=== PATIENT | male | born 1945 | race Native Hawaiian/Other Pacific Islander ===

== ENCOUNTER 2020-09-29 13:34 | Inpatient (IN) | payer OTHER ==
--- NOTE | 2020-09-28 19:20 | NUR ---
PT. SITTING UP IN BED IN A HIGH-FOWLERS POSITION WITH RT AT BEDSIDE DOING A DUONEB TREATMENT AT THIS TIME. PT IS RESPONSIVE TO VERBAL AND TACTILE STIMULI. PT HAD A PRODUCTIVE COUGH AT THIS TIME.
--- NOTE | 2020-09-28 22:33 | NUR ---
RAMILA NOTIFIED OF PT'S PRODUCTIVE COUGH AND LEFT RIB PAIN DUE TO COUGHING CONSISTENTY. RAMILA GAVE AN ORDER FOR CHLORAPHENIRAMINE W/ HYDROCODONE 5 ML PO Q12H AND TORADOL 15 MG IVP ONE TIME DOSE. READ BACK AND VERIFIED. NOTED AND CARRIED OUT.
[~2020-09-29] VITALS: Ht 180.3 cm; Wt 69.9 kg
[2020-09-29 14:17] LABS: PLATELET COUNT 253 K/uL (142-355)
[2020-09-29 14:27] VITALS: BP 137/66; TEMP 99; Ht 180.3 cm; Wt 69.9 kg
--- NOTE | 2020-09-29 14:50 | NUR ---
09/29/20 1401 PT TO ROOM 1109 DX COPD ORIENTED TO ROOM. PT TELE PLACED ON HIM.ALSO LUIS HOSE PLACED ON PER PCT.CALL LIGHT WITHIN REACH.CC
[2020-09-29 14:58] LABS: POTASSIUM 3.5 mmol/L (3.6-5.2); SODIUM 135 mmol/L (136-145)
[2020-09-29 16:00] VITALS: BP 137/66; TEMP 99
--- NOTE | 2020-09-29 17:11 | NUR ---
09/29/2020 1710 SPUTUM COLLECTED SENT TO LAB.CC
--- NOTE | 2020-09-29 18:09 | NUR ---
09/29/20 5308 PT COUGHING REQUESTS TO HAVE SOME OXYGEN THERAPY.PUT OXYGEN NC AT 2LPM.PT TALKING WATCHING T.V. NO DISTRESS NOTED.CALL LIGHT WITHIN REACH.CC
[2020-09-29 20:09] VITALS: BP 135/70; TEMP 99.3
[2020-09-30] VITALS (7 sets, daily range): BP systolic 99–133; BP diastolic 52–95; TEMP 97.7–98.9
--- NOTE | 2020-09-30 02:30 | NUR ---
PT RESTING QUIETLY AND NAD NOTED IN A HIGH FOLWERS POSITION.
[2020-09-30 05:06] LABS: PLATELET COUNT 229 K/uL (142-355)
[2020-09-30 05:20] LABS: POTASSIUM 3.2 mmol/L (3.6-5.2)
--- NOTE | 2020-09-30 07:45 | NUR ---
RESTING COUGHING A PRODUCTIVE COUGH OF CLEAR COLOR SPUTUM. HX OF COPD.
--- NOTE | 2020-09-30 13:13 | NUR ---
New patient and admitted with COPD and is on a Regualr diet plan and WBC elevated and RBC, Hgb, Hct, Na, K, Ast, alt, and alb all depressed and ate 100% of meal. 5'11" at 152 lbs. and is a 75YOM. IBW = 172+/-10% (155 to 189 lbs.) and kcal needs x 25 = 2000, x 30 = 2300, x 35 = 2700, x 40 = 3100 kcal/day, protein needs x 1.2 to 1.5 = 94 to 117 grams per day and fluids x 25 = 2000, x 30 = 2300, x 35 = 2700, x 40 = 3100 ml/cc per day. BMI = 21.19 and is wnl's and is 85% of IBW. RD Recommendations: 1-Pt to work with the patient 2-OT to work wiht the patient 3-Monitor labs 4-Add Protein 30 ml/cc BID 5-Add Vitamin C 500 mg BID 6-Add ZNSO4 220 mg per day and d/c in 14 days 7-Add a MVI daily 8- Add a supplement BID 9-Add foods high in Fe with meals
--- NOTE | 2020-09-30 19:45 | NUR ---
PT. SITTING UP IN HIGH-FOWLERS POSITION WITH SIDE RAILS UP TIMES TWO AND BED IN LOWEST POSITION. NAD NOTED AT THIS TIME. WITNESSED INCENTIVE SPIROMETER USE AT THIS TIME. PT GOT UP TO 1500 VOLUME.
--- NOTE | 2020-10-01 01:25 | NUR ---
PRN TUSSIONEX 5 ML GIVEN AT THIS TIME DUE TO STRONG, PRODUCTIVE COUGH EXHIBITED BY PT AT THIS TIME. PT IN A LOW FOWLERS POSITION AT THIS TIME WITH BED IN LOWEST POSITION.
[2020-10-01 03:49] VITALS: BP 121/84; TEMP 98.6
[2020-10-01 05:55] LABS: PLATELET COUNT 258 K/uL (142-355)
[2020-10-01 06:14] LABS: POTASSIUM 3.9 mmol/L (3.6-5.2)
[2020-10-01 08:00] VITALS: BP 107/62; TEMP 98.2
--- NOTE | 2020-10-01 09:36 | NUR ---
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 ACCEPTS OFFER OF PRN COUGH SYRUP.
[2020-10-01 12:00] VITALS: BP 123/64; TEMP 98
[2020-10-01 16:00] VITALS: BP 111/70; TEMP 97.6
--- NOTE | 2020-10-01 19:45 | NUR ---
PT IS SITTING UP IN A HIGH-FOWLERS POSITION WITH SIDE RAILS UP TIMES TWO WITH BED IN LOWEST POSITION. PT ABLE TO VOCALIZE AND HAVE CONVERSATION ADEQUETELY AND RESPONDS TO VERBAL STIMULI. PT. DENIES ANY PAIN OR DISCOMFORT AT THIS TIME. NO NAD NOTED. PT EDUCATED ON INCENTIVE SPIROMETER USAGE AND GOT UP TO 1999.
[2020-10-01 20:16] VITALS: BP 122/71; TEMP 98.1
--- NOTE | 2020-10-01 23:15 | NUR ---
PT RESTING WITH SIDE RAILS UP TIMES TWO AND BED IN LOWEST POSITION ON 2LPM O O2.
[2020-10-01 23:38] VITALS: BP 113/54; TEMP 98.2
--- NOTE | 2020-10-02 03:55 | NUR ---
PO ANTIBIOTIC GIVEN AT THIS TIME. PT COMPLAINS OF LEFT RIB PAIN DUE TO EXCESSIVE COUGHING AT THIS TIME ON 2LPM OXYGEN. RT NOTIFIED OF PT'S REQUEST OF PRN DUONEB TREATMENT AT THIS TIME.
[2020-10-02 04:00] VITALS: BP 127/66; TEMP 98.1
--- NOTE | 2020-10-02 04:10 | NUR ---
DR. MCGRATH NOTIFIED OF PT'S COMPLAINT OF LEFT RIB PAIN DUE TO CONTINOUS COUGHING. DR. MCGRATH GAVE AN ORDER FOR TORADOL 15 MG IVP ONE TIME DOSE AND TESSALON PEARLS 100MG Q8H PRN FOR COUGHING AT THIS TIME. ORDER REDBACK AND VERIFIED AT THIS TIME. NOTED AND CARRIED OUT.
--- NOTE | 2020-10-02 04:23 | NUR ---
ALBUTEROL TREATMENT GIVEN BY RT AT THIS TIME UPON PT'S REQUEST. O2 SAT IS 97-98% AT THIS TIME. PT IS IN A HIGH FOWLERS POSITION WITH SIDE RAILS UP TIMES TWO AND TOLERATED THE TREATMENT WELL.
[2020-10-02 05:19] LABS: PLATELET COUNT 228 K/uL (142-355)
[2020-10-02 05:26] LABS: POTASSIUM 4.1 mmol/L (3.6-5.2)
[2020-10-02 08:00] VITALS: BP 116/69; TEMP 97.9
[2020-10-02 12:00] VITALS: BP 122/61; TEMP 98.1
--- NOTE | 2020-10-02 14:00 | NUR ---
DC INSTRUCTIONS GIVEN AND EXPLAINED TO PT, FOLLOWUP APPT. MADE WITH DR. MCGRATH, INSTRUCTED PT TO ELEVATE HOB AT HOME WITH BRICKS OR 4X6 OR SLEEP IN RECLINER, MEDICATIONS CALLED INTO TO PHARMACY, IV REMOVED WITH CATHETER INTACT, PT DC VIA AMBULATION TO PRIVATE VEHICLE NAD NOTED
== END 2020-10-02 14:09 | disposition home or self-care (01) | DRG 192 ==
LOC: MED/SURG 13:34
PROVIDERS: ADMIT Family Medicine; ATTEND Family Medicine
DX: J44.1 Chronic obstructive pulmonary disease with (acute) exacerbation (principal); H91.8X9 Other specified hearing loss, unspecified ear; I10 Essential (primary) hypertension; I73.89 Other specified peripheral vascular diseases; S29.011A Strain of muscle and tendon of front wall of thorax, initial encounter; X58.XXXA Exposure to other specified factors, initial encounter; R09.02 Hypoxemia; B96.20 Unspecified Escherichia coli [E. coli] as the cause of diseases classified elsewhere
CPT/HCPCS: 36415; 36600; 80053; 82550; 82805; 82948; 83735; 83880; 84100; 84484; 85027; 87070; 87077; 87186; 87205; 87635; 93005; 94640; 94664; 94760; 96372; 96374; J1650; J1885; J2930; U0003

== ENCOUNTER 2020-11-12 11:23 | Emergency (ER) | payer OTHER ==
[~2020-11-12] VITALS: Ht 180.3 cm; Wt 69.9 kg
[2020-11-12 11:41] VITALS: TEMP 97.2
[2020-11-12 12:12] LABS: PLATELET COUNT 261 K/uL (142-355)
[2020-11-12 12:23] LABS: POTASSIUM 3.8 mmol/L (3.6-5.2); SODIUM 140 mmol/L (136-145)
[2020-11-12 13:35] VITALS: BP 132/62
== END 2020-11-12 13:42 | disposition home or self-care (01) ==
LOC: ED 11:23
PROVIDERS: Hospitalist
DX: J44.1 Chronic obstructive pulmonary disease with (acute) exacerbation (principal); F17.290 Nicotine dependence, other tobacco product, uncomplicated; Z20.822 Contact with and (suspected) exposure to COVID-19
CPT/HCPCS: 36415; 80053; 82550; 82553; 83880; 84484; 85027; 85610; 85730; 87635; 87651; 93005; 94664; 96374; 99284; J2930; U0003

== ENCOUNTER 2020-11-27 15:00 | Observation (INO) | payer OTHER ==
[~2020-11-27] VITALS: Ht 180.3 cm; Wt 68.5 kg
[2020-11-27 17:24] LABS: PLATELET COUNT 225 K/uL (142-355)
[2020-11-27 17:40] LABS: POTASSIUM 3.8 mmol/L (3.6-5.2); SODIUM 139 mmol/L (136-145)
--- NOTE | 2020-11-27 17:45 | NUR ---
RT TO ASSESS PT. PT IS SITTING ON SIDE OF BED. NO ACUTE DISTRESS NOTED. ROOM AIR SPO2 AT 95%, HR: 82. EKG AND ROOM AIR ABG COMPLETED AT THIS TIME. NEB SET UP PLACED IN PT ROOM FOR Q4WA TX. NC AT BEDSIDE FOR PRN USE.
[2020-11-27 19:38] VITALS: BP 132/60; TEMP 98.2; Ht 180.3 cm; Wt 68.5 kg
[2020-11-27] MEDS ORDERED: INCRUSE EL62.5 MCG/I INH (19:49)
[2020-11-27] MEDS ORDERED: ALBU90AE13 INH (19:49)
[2020-11-27 20:00] VITALS: BP 137/71; TEMP 99
[2020-11-28 00:21] VITALS: BP 115/68; TEMP 97.9
[2020-11-28 04:00] VITALS: BP 124/69; TEMP 97.9
[2020-11-28 08:00] VITALS: BP 121/79; TEMP 97.2
--- NOTE | 2020-11-28 08:10 | NUR ---
INFORMED DR. MCGRATH OF PT'S CONDITION AND VITALS THIS AM, DR. MCGRATH ORDERS CMP,CBC, MAG, AND PHOS FOR 1200 AND THEN DECIDE ON DISPOSITION FOR PT, NO FURTHER ORDERS GIVEN AT THIS TIME
[2020-11-28 12:00] VITALS: BP 134/72; TEMP 97.8
[2020-11-28 12:02] LABS: PLATELET COUNT 213 K/uL (142-355)
--- NOTE | 2020-11-28 15:20 | NUR ---
DR MCGRATH HERE AT THIS TIME IN ROOM MAKING ROUNDS. DR MCGRATH SPEAKING TO PT AND EXPLAINING DISCHARGE AND DISCHARGE MEDS PER MD. PT VERBALZIING UNDERSTANDING.
--- NOTE | 2020-11-28 16:30 | NUR ---
DC INSTRUCTIONS GIVEN AND EXPLAINED TO PT, GAVE EDUCATION AND INSTRUCTIONS ON NEW MEDICATIONS WRITTEN, PT VERBALIZED UNDERSTANDING, IV REMOVED WITH CATHETER INTACT, FOLLOWUP APPOINTMENT MADE DR. MCGRATH FOR 12/05/20 AT 1130, PT DC VIA AMBULATION TO PRIVATE VEHICLE, NAD NOTED
== END 2020-11-28 18:46 | disposition home or self-care (01) ==
LOC: MED/SURG 15:00
PROVIDERS: ADMIT Family Medicine; ATTEND Family Medicine
DX: R07.89 Other chest pain (principal); R06.02 Shortness of breath; I10 Essential (primary) hypertension; K21.9 Gastro-esophageal reflux disease without esophagitis; E11.9 Type 2 diabetes mellitus without complications
CPT/HCPCS: 36600; 80053; 82550; 82805; 83735; 83880; 84100; 84484; 85027; 87070; 87205; 87635; 93005; 94640; 94664; 94760; 99220; G0378; G0379; J1644; J2930; U0003

== ENCOUNTER 2021-08-03 04:27 | Emergency (ER) | payer OTHER ==
[~2021-08-03] VITALS: Ht 180.3 cm; Wt 68.5 kg
[2021-08-03 04:27] VITALS: TEMP 97.9
[~2021-08-03 04:27] MED LIST: ALBU90AE13 INH; INCRUSE EL62.5 MCG/I INH
[2021-08-03 04:50] LABS: PLATELET COUNT 135 K/uL (142-355)
[2021-08-03 09:58] VITALS: BP 130/74
== END 2021-08-03 10:00 | disposition short-term general hospital (02) ==
LOC: ED 04:27
PROVIDERS: Emergency Medicine
DX: K40.30 Unilateral inguinal hernia, with obstruction, without gangrene, not specified as recurrent (principal); U07.1 COVID-19
CPT/HCPCS: 36415; 80053; 83605; 84484; 85027; 85610; 87635; 96360; 96375; 96376; 99284; J1170; J2270; J2405; U0003